=== PATIENT | female | born 1975 | race Caucasian/White ===

== ENCOUNTER 2019-02-12 11:25 | Emergency (ER) | payer MEDICAID ==
[~2019-02-12] VITALS: Ht 154.9 cm; Wt 86.0 kg
[~2019-02-12 11:25] MED LIST: IBUP-1636
[2019-02-12] MEDS ORDERED: KETOROLAC 60MG/2ML VIAL IM ONE (14:30)
[2019-02-12] MEDS ORDERED: DIAZEPAM 5 MG TABLET PO ONE (14:30)
[2019-02-12 15:20] VITALS: BP 133/81
== END 2019-02-12 15:37 | disposition home or self-care (01) ==
LOC: ER 15:01
DX: M62.838 Other muscle spasm (principal); F43.9 Reaction to severe stress, unspecified
CPT/HCPCS: 96372; 99283; J1885